=== PATIENT | male | born 1985 | race Caucasian/White ===

== ENCOUNTER 2018-02-24 02:54 | Emergency (ER) | payer SELFPAY ==
[2018-02-24] MEDS: HALOPERIDOL 5 MG/ML VIAL (J1630) IM (03:46)
[2018-02-24] MEDS: diphenhydrAMINE INJ 50MG/ML VIAL (J1200) IM (03:47)
[2018-02-24] MEDS: NS 1,000 ML IV (03:47)
[2018-02-24 04:29] LABS: ANION GAP 8 MEQ/L (8-16); BLOOD UREA NITROGEN 11 MG/DL (7-18); CARBON DIOXIDE LEVEL 25 MEQ/L (21-32); CHLORIDE LEVEL 114 MEQ/L (98-107); CREATININE FOR GFR 0.87 MG/DL (0.70-1.30); ETHYL ALCOHOL (ETHANOL) 0.381 % (0.000-0.010); GLOMERULAR FILTRATION RATE > 60.0 (>60); GLUCOSE, FASTING 101 MG/DL (70-100); POTASSIUM SERUM 4.1 MEQ/L (3.5-5.1); SODIUM LEVEL 147 MEQ/L (136-145)
== END 2018-02-24 08:27 | disposition home or self-care (01) ==
LOC: M ED 02:54
DX: F10.129 Alcohol abuse with intoxication, unspecified (principal)
CPT/HCPCS: J1200

== ENCOUNTER → 2018-08-25 | Outpatient (REF) | payer OTHER, MEDICAID ==
[2018-08-25 14:37] LABS: BASO % 0.6 % (0.0-1.0); EOS # 0.3 10^3/uL (0.0-0.50); EOS % 3.7 % (0.0-3.0); HEMATOCRIT 47.5 % (42.0-52.0); HEMOGLOBIN 16.6 g/dl (13.5-17.5); LYMPH # 2.8 10^3/uL (1.5-4.5); LYMPH % 39.1 % (24.0-44.0); MEAN CORPUSCULAR HEMOGLOBIN 33.1 pg (27.0-33.0); MEAN CORPUSCULAR HGB CONC 34.9 g/dl (32.0-36.5); MEAN CORPUSCULAR VOLUME 94.6 fl (80.0-96.0); MONO # 0.5 10^3/uL (0.0-0.8); MONO % 7.3 % (0.0-5.0); NEUTROPHILS # 3.5 10^3/uL (1.8-7.7); NEUTROPHILS % 48.9 % (36.0-66.0); PLATELET COUNT, AUTOMATED 218 10^3/uL (150-450); RED BLOOD COUNT 5.02 10^6/uL (4.30-6.10); WHITE BLOOD COUNT 7.2 10^3/uL (4.0-10.0)
[2018-08-25 14:53] LABS: ALBUMIN 4.1 GM/DL (3.2-5.2); ALT/SGPT 55 U/L (12-78); BILIRUBIN,TOTAL 0.4 MG/DL (0.2-1.0); BLOOD UREA NITROGEN 11 MG/DL (7-18); CALCIUM LEVEL 8.6 MG/DL (8.5-10.1); CARBON DIOXIDE LEVEL 24 MEQ/L (21-32); CHLORIDE LEVEL 110 MEQ/L (98-107); CHOLESTEROL LEVEL 242 MG/DL (<200); CHOLESTEROL RISK RATIO 4.653 (<5); CREATININE FOR GFR 0.88 MG/DL (0.70-1.30); FREE T4 1.14 NG/DL (0.76-1.46); GLOMERULAR FILTRATION RATE > 60.0 (>60); GLUCOSE, FASTING 95 MG/DL (70-100); HDL CHOLESTEROL 52 MG/DL (>40); LDL CHOLESTEROL 130 MG/DL (<100); NON-HDL-C 190 MG/DL; POTASSIUM SERUM 4.1 MEQ/L (3.5-5.1); SODIUM LEVEL 143 MEQ/L (136-145); TOTAL 25(OH) VITAMIN D 21.2 NG/ML (30.0-100.0); TOTAL PROTEIN 7.3 GM/DL (6.4-8.2); TRIGLYCERIDES LEVEL 302 MG/DL (<150)
[2018-08-25 14:57] LABS: HEMOGLOBIN A1c 5.9 %
== END ==
LOC: M LAB REF 13:54
PROVIDERS: ATTEND Family Medicine
DX: L03.112 Cellulitis of left axilla (principal); Z00.01 Encounter for general adult medical examination with abnormal findings

== ENCOUNTER 2019-07-04 02:50 | Emergency (ER) | payer MEDICAID, OTHER ==
[~2019-07-04] VITALS: Ht 180.3 cm; Wt 86.4 kg
[2019-07-04 03:16] VITALS: BP 138/75
== END 2019-07-04 04:18 | disposition home or self-care (01) ==
LOC: M ED 02:50
DX: F10.120 Alcohol abuse with intoxication, uncomplicated (principal)

== ENCOUNTER 2019-09-11 02:43 | Emergency (ER) | payer OTHER ==
[2019-09-11] MEDS ORDERED: MIDAZOLAM INJ 2 MG/2 ML VIAL (J2250) IV ONE (03:00)
[2019-09-11] MEDS ORDERED: diphenhydrAMINE INJ 50MG/ML VIAL (J1200) IM ONE (03:15)
[2019-09-11] MEDS ORDERED: HALOPERIDOL 5 MG/ML VIAL (J1630) IM ONE (03:15)
[2019-09-11] MEDS ORDERED: LORazepam 2 MG/ML VIAL (J2060) IM ONE (03:15)
[2019-09-11] MEDS ORDERED: NS 1,000 ML IV ONE (04:30)
[2019-09-11] MEDS ORDERED: NS 1,000 ML IV SCH (05:00)
[2019-09-11 11:36] VITALS: BP 98/59
== END 2019-09-11 11:37 | disposition home or self-care (01) ==
LOC: M ED 02:43
DX: F10.129 Alcohol abuse with intoxication, unspecified (principal)
CPT/HCPCS: 96361; 96372; 99285; G0480; J1200; J1630; J2060

== ENCOUNTER 2021-12-30 10:36 | Emergency (ER) | payer OTHER ==
[~2021-12-30] VITALS: Ht 180.3 cm; Wt 90.9 kg
[2021-12-30] MEDS ORDERED: NS 1,000 ML IV ONE (12:05)
[2021-12-30 13:08] LABS: BASO % 0.5 % (0.0-1.0); EOS # 0.1 10^3/uL (0.0-0.5); EOS % 0.7 % (0.0-3.0); HEMOGLOBIN 16.9 g/dl (13.5-17.5); LYMPH # 2.5 10^3/uL (1.5-5.0); LYMPH % 30.6 % (24.0-44.0); MEAN CORPUSCULAR HEMOGLOBIN 34.1 pg (27.0-33.0); MEAN CORPUSCULAR HGB CONC 34.5 g/dl (32.0-36.5); MONO # 0.6 10^3/uL (0.0-0.8); MONO % 7.9 % (2.0-8.0); NEUTROPHILS # 4.8 10^3/uL (1.5-8.5); NEUTROPHILS % 59.8 % (36.0-66.0); PLATELET COUNT, AUTOMATED 153 10^3/uL (150-450); RED BLOOD COUNT 4.95 10^6/uL (4.30-6.10)
[2021-12-30 13:36] LABS: BILIRUBIN,DIRECT 0.2 MG/DL (0.0-0.2); BILIRUBIN,TOTAL 0.3 MG/DL (0.2-1.0); ETHYL ALCOHOL (ETHANOL) 0.207 % (0.000-0.010); TOTAL PROTEIN 7.7 GM/DL (6.4-8.2)
[2021-12-30] MEDS ORDERED: MORPHINE 4 MG/ML 1ML VIAL/SYRINGE IV PRN (13:50)
[2021-12-30] MEDS ORDERED: IBUP80TA PO (14:42)
[2021-12-30] MEDS ORDERED: PERC5TAB12 PO (14:42)
[2021-12-30 14:59] VITALS: BP 152/90
== END 2021-12-30 15:23 | disposition home or self-care (01) ==
LOC: M ED 10:36
DX: S02.651A Fracture of angle of right mandible, initial encounter for closed fracture (principal); Y92.410 Unspecified street and highway as the place of occurrence of the external cause; Y04.8XXA Assault by other bodily force, initial encounter; R94.5 Abnormal results of liver function studies; F17.200 Nicotine dependence, unspecified, uncomplicated; F10.120 Alcohol abuse with intoxication, uncomplicated; Y90.6 Blood alcohol level of 120-199 mg/100 ml
CPT/HCPCS: 70450; 70486; 72125; 80047; 80076; 82077; 85025; 96361; 96374; 99284; J2270

== ENCOUNTER 2022-03-09 00:51 | Emergency (ER) | payer OTHER ==
[~2022-03-09] VITALS: Ht 182.9 cm; Wt 88.5 kg
[~2022-03-09 00:51] MED LIST: IBUP80TA PO; PERC5TAB12 PO
[2022-03-09 01:55] LABS: HEMATOCRIT 47.8 % (42.0-52.0); HEMOGLOBIN 16.6 g/dl (13.5-17.5); MEAN CORPUSCULAR HEMOGLOBIN 34.6 pg (27.0-33.0); MEAN CORPUSCULAR HGB CONC 34.7 g/dl (32.0-36.5); MEAN CORPUSCULAR VOLUME 99.6 fl (80.0-96.0); PLATELET COUNT, AUTOMATED 220 10^3/uL (150-450); WHITE BLOOD COUNT 10.6 10^3/uL (4.0-10.0)
[2022-03-09 02:06] LABS: AMPHETAMINES LEVEL URINE NEGATIVE (NEGATIVE); BARBITURATES URINE NEGATIVE (NEGATIVE); BENZODIAZEPINES URINE NEGATIVE (NEGATIVE); CANNABINOIDS URINE NEGATIVE (NEGATIVE); COCAINE METABOLITE URINE NEGATIVE (NEGATIVE); METHADONE URINE NEGATIVE (NEGATIVE); OPIATES URINE NEGATIVE (NEGATIVE); PHENCYCLIDINE URINE NEGATIVE (NEGATIVE)
[2022-03-09 02:20] LABS: ACETAMINOPHEN LEVEL < 2.0 UG/ML (10.0-30.0); ALBUMIN 3.8 GM/DL (3.2-5.2); ALT/SGPT 103 U/L (12-78); BILIRUBIN,DIRECT 0.1 MG/DL (0.0-0.2); BILIRUBIN,TOTAL 0.2 MG/DL (0.2-1.0); BLOOD UREA NITROGEN 6 MG/DL (7-18); CALCIUM LEVEL 8.4 MG/DL (8.5-10.1); CARBON DIOXIDE LEVEL 24 MEQ/L (21-32); CHLORIDE LEVEL 107 MEQ/L (98-107); CREATININE FOR GFR 0.94 MG/DL (0.70-1.30); ETHYL ALCOHOL (ETHANOL) 0.431 % (0.000-0.010); GLOMERULAR FILTRATION RATE > 60.0 (>60); GLUCOSE, FASTING 131 MG/DL (70-100); SALICYLATE LEVEL 2.4 MG/DL (5.0-30.0); SODIUM LEVEL 140 MEQ/L (136-145); THYROID STIMULATING HORMONE 0.808 uIU/ML (0.358-3.740); TOTAL PROTEIN 7.6 GM/DL (6.4-8.2)
[2022-03-09] MEDS ORDERED: NS 1,000 ML IV ONE (02:35)
[2022-03-09 05:51] VITALS: BP 120/62
== END 2022-03-09 06:15 | disposition home or self-care (01) ==
LOC: EDBD 00:51 → M ED 00:51
DX: F10.120 Alcohol abuse with intoxication, uncomplicated (principal)